=== PATIENT | male | born 1990 | race American Indian/Alaskan Native ===

== ENCOUNTER 2018-09-13 20:17 | Emergency (ER) | payer MEDICAID ==
[2018-09-13 20:17] VITALS: BMI 28.7
[2018-09-13 20:31] VITALS: RESP 18
[2018-09-13] MEDS ORDERED: Sodium Chloride 0.9% 1,000 ML IV STA (20:59)
--- NOTE | 2018-09-13 21:05 | ED PDOC ---
HPI: Influenza Time Seen by Provider: 09/13/18 20:53 Chief Complaint: Flu-like Symptoms Chief Complaint (Provider): Flu-like Symptoms History Per: Patient Exam Limitations: no limitations Onset/Duration Of Symptoms: Days (x1) Additional complaint(s):: 28 year old male presents to the ED for evaluation of fever of t-max 103, cough, congestion, body aches, and throat pain beginning yesterday. Reports taking Motrin with temporary relief, last dose around 1800 today. Otherwise, denies chest pain, shortness of breath, hemoptysis, nausea, vomiting, diarrhea, sick contacts, and recent travel. Did not receive flu shot this season PMD: none provided Past Medical History Reviewed: Historical Data, Nursing Documentation, Vital Signs Vital Signs: Last Vital Signs Temp 102.7 F H 09/13/18 20:28 Pulse 107 H 09/13/18 20:28 Resp 18 09/13/18 20:28 BP 133/78 09/13/18 20:28 Pulse Ox 98 09/13/18 20:28 - Medical History PMH: Schizophrenia - Surgical History Surgical History: No Surg Hx - Family History Family History: States: Unknown Family Hx - Immunization History Hx Influenza Vaccination: No - Home Medications Home Medications: Ambulatory Orders Medication Instructions Recorded Amoxicillin [Amoxil 500 mg Cap] 500 mg PO TID #30 cap 09/13/18 Benzonatate [Tessalon Perle] 200 mg PO Q8 PRN #14 capsule 09/13/18 Ibuprofen [Motrin Tab] 800 mg PO Q8 PRN #10 tab 09/13/18 Oseltamivir Cap [Tamiflu] 75 mg PO BID #9 cap 09/13/18 - Allergies Allergies/Adverse Reactions: Allergies Allergy/AdvReac Type Severity Reaction Status Date / Time No Known Allergies Allergy Unverified 07/06/18 07:23 Review of Systems ROS Statement: Except As Marked, All Systems Reviewed And Found Negative Constitutional: Positive for: Fever (t-max 103), Other (body aches) ENT: Positive for: Nose Congestion, Throat Pain Cardiovascular: Negative for: Chest Pain Respiratory: Positive for: Cough. Negative for: Shortness of Breath, Hemoptysis Gastrointestinal: Negative for: Nausea, Vomiting, Diarrhea Physical Exam - Reviewed Nursing Documentation Reviewed: Yes Vital Signs Reviewed: Yes - Physical Exam Appears: Positive for: No Acute Distress Skin: Positive for: Normal Color, Warm, Dry. Negative for: Rash Eye Exam: Positive for: Normal appearance, EOMI, PERRL ENT: Positive for: Normal ENT Inspection Cardiovascular/Chest: Positive for: Regular Rate, Rhythm Respiratory: Positive for: Normal Breath Sounds. Negative for: Respiratory Distress Gastrointestinal/Abdominal: Positive for: Normal Exam, Soft. Negative for: Tenderness Neurologic/Psych: Positive for: Alert, Oriented (x3) Medical Decision Making Medical Decision Making: Time: 2057 Initial Impression: flu-like symptoms Initial Plan: --CMP --CBC with differential --CXR --Normal saline IV --Tamiflu 75mg PO --Tylenol 975mg PO --Blood culture --Influenza A B swab --Rapid strep test --Urinalysis Scribe Attestation: Documented by Inocencia Davis, acting as a scribe for Romie Hutchison PA-C. Provider Scribe Attestation: All medical record entries made by the Scribe were at my direction and personally dictated by me. I have reviewed the chart and agree that the record accurately reflects my personal performance of the history, physical exam, medical decision making, and the department course for this patient. I have also personally directed, reviewed, and agree with the discharge instructions and disposition. - Laboratory Results Result Diagrams: 09/13/18 21:27 09/13/18 21:27 - ECG O2 Sat by Pulse Oximetry: 98 (RA) Pulse Ox Interpretation: Normal - Progress Re-evaluation Time: 22:30 (On re-evaluation, pt. reports feeling better. Repeat VS improved. Informed of all resutls. Told to take Tylenol and is to drink plenty of water. Amoxicillin PO ordered. Advised to f/u PMD for further evaluation but is to return to ED immediately if symptoms worsen. Pt. verbalized correct understanding of necessary f/u and care.) Condition: Re-examined, Improved Disposition - Clinical Impression Clinical Impression: Strep pharyngitis, Influenza - Patient ED Disposition Is Patient to be Admitted: No - Disposition Referrals: [facility] [Outside] [facility] [Outside] Disposition: Routine/Home Disposition Time: 22:38 Condition: IMPROVED Additional Instructions: DRINK PLENTY OF FLUIDS CONTINUE TAKING TYLENOL FOLLOW UP WITH YOUR DOCTOR FOR FURTHER EVALUATION RETURN TO ED IMMEDIATELY IF SYMPTOMS WORSEN BESSY JUNIOR, thank you for letting us take care of you today. Your provider was Maria E Saavedra MD and you were treated for FEVER. The emergency medical care you received today was directed at your acute symptoms. If you were prescribed any medication, please fill it and take as directed. It may take several days for your symptoms to resolve. Return to the Emergency Department if your symptoms worsen, do not improve, or if you have any other problems. Please contact your doctor or call one of the physicians/clinics you have been referred to that are listed on the Patient Visit Information form that is included in your discharge packet. Bring any paperwork you were given at discharge with you along with any medications you are taking to your follow up visit. Our treatment cannot replace ongoing medical care by a primary care provider outside of the emergency department. Thank you for allowing the [facility] team to be part of your care today. If you had an X-Ray or CT scan: A Radiologist will review the ED reading if any change in treatment is needed we will contact you. If you had a blood, urine, or wound culture: It will take several days for the results, if any change in treatment is needed we will contact you. If you had an STI test: It will take 48 hours for the results. Please call after 1 week if you have not heard back. Prescriptions: Amoxicillin [Amoxil 500 mg Cap] 500 mg PO TID #30 cap Benzonatate [Tessalon Perle] 200 mg PO Q8 PRN #14 capsule PRN Reason: Cough Ibuprofen [Motrin Tab] 800 mg PO Q8 PRN #10 tab PRN Reason: fever or pain Oseltamivir Cap [Tamiflu] 75 mg PO BID #9 cap Instructions: Flu, Adult (DC), Strep Throat (DC) Forms: [facility] ([place]), [facility] ED School/Work Excuse
[2018-09-13 21:34] LABS: VENOUS BLOOD GAS PCO2 42 mmHg (40-60); VENOUS BLOOD GAS PO2 42 mm/Hg (30-55)
[2018-09-13 21:37] LABS: BASO % 0.2 % (0.0-2.0); EOS % 0.3 % (0.0-4.0); HEMOGLOBIN 12.8 g/dL (12.0-18.0); LYMPH # 0.5 K/uL (1.0-4.3); MEAN CELL VOLUME 83.1 fl (80.0-94.0); MEAN CORPUSCULAR HEMOGLOBIN 27.5 pg (27.0-31.0); MEAN CORPUSCULAR HGB CONC 33.1 g/dL (33.0-37.0); MEAN PLATELET VOLUME 9.7 fl (7.2-11.7); MONO # 1.2 K/uL (0.0-0.8); NEUT # 5.2 K/uL (1.8-7.0); NEUT % 75.5 % (50.0-75.0); PLATELET COUNT 181 K/uL (130-400); RBC 4.65 Mil/uL (4.40-5.90); RED CELL DISTRIBUTION WIDTH 13.5 % (11.5-14.5); WHITE BLOOD COUNT 6.9 K/uL (4.8-10.8)
[2018-09-13 21:42] LABS: ALBUMIN 4.3 g/dL (3.5-5.0); ALT/SGPT 22 U/L (21-72); AST/SGOT 30 U/L (17-59); BLOOD UREA NITROGEN 14 mg/dl (9-20); CALCIUM 8.9 mg/dL (8.4-10.2); GFR NON-AFRICAN AMERICAN > 60
[2018-09-13 22:35] VITALS: BP 102/70; PULSE 98; TEMP 99.1
[2018-09-13 22:40] VITALS: O2SAT 98
[2018-09-13 22:59] LABS: ANISOCYTOSIS SLIGHT; BANDS 2 % (0-2); HYPOCHROMIC SLIGHT; LYMPHOCYTE 9 % (20-50); MICROCYTOSIS SLIGHT; MONOCYTE 12 % (0-10); NEUTROPHIL 77 % (42-75); PLATELET ESTIMATE NORMAL (NORMAL); TOTAL CELLS COUNTED 100
--- NOTE | 2018-09-14 10:47 | RAD ---
Date of service: 09/13/2018 HISTORY: cough COMPARISON: No prior. TECHNIQUE: Chest PA and lateral FINDINGS: LUNGS: No active pulmonary disease. PLEURA: No significant pleural effusion identified. No pneumothorax apparent. CARDIOVASCULAR: No aortic atherosclerotic calcification present. Normal cardiac size. No pulmonary vascular congestion. OSSEOUS STRUCTURES: No significant abnormalities. VISUALIZED UPPER ABDOMEN: Normal. OTHER FINDINGS: None. IMPRESSION: No active disease.
== END 2018-09-13 22:45 | disposition home or self-care (01) ==
LOC: H.ER 20:17
DX: J02.0 Streptococcal pharyngitis (principal); Z86.59 Personal history of other mental and behavioral disorders; J11.1 Influenza due to unidentified influenza virus with other respiratory manifestations
CPT/HCPCS: 71046; 80053; 82803; 85025; 87040; 87430; 87804; 96360; 99284; J7030